=== PATIENT | male | born 1975 | race Caucasian/White ===

== ENCOUNTER 2023-04-04 08:28 | Day surgery (SDC) | payer BC ==
[2023-04-03 15:30] LABS: BASOPHILS % (AUTO) 0.4 % (0-1); EOSINOPHILS # (AUTO) 0.4 X10'3 (0-0.9); EOSINOPHILS % (AUTO) 4.3 % (0-6); LYMPHOCYTES # (AUTO) 2.1 X10'3 (1.1-4.8); LYMPHOCYTES % (AUTO) 25.5 % (21-51); MEAN CORPUSCULAR HEMOGLOBIN 32.4 PG (27.0-31.0); MEAN CORPUSCULAR HGB CONC 33.9 g/dL (33.0-36.5); MEAN CORPUSCULAR VOLUME 95.4 FL (78-98); MEAN PLATELET VOLUME 8.6 FL (7.4-10.4); MONOCYTES # (AUTO) 0.9 X10'3 (0-0.9); MONOCYTES % (AUTO) 10.2 % (2-12); NEUTROPHILS % (AUTO) 59.6 % (42-75); PRE OP HEMATOCRIT 43.1 % (42.0-52.0); PRE OP HEMOGLOBIN 14.6 g/dL (14.0-17.9); PRE OP PLATELET COUNT 223 X10'3 (140-440); RED BLOOD COUNT 4.52 X10'6 (4.70-6.10); RED CELL DISTRIBUTION WIDTH 12.9 % (11.5-14.5)
[2023-04-03 15:49] LABS: ALBUMIN 3.6 G/DL (3.4-5.0); ALBUMIN/GLOBULIN RATIO 1.2 (1.1-1.5); ALKALINE PHOSPHATASE 73 IU/L (46-116); BLOOD UREA NITROGEN 17 MG/DL (7-18); CALCIUM 9.2 MG/DL (8.5-10.1); CHLORIDE 105 MMOL/L (99-107); PRE OP ALT 49 U/L (30-65); PRE OP ANION GAP 7 (8-16); PRE OP AST 22 U/L (10-37); PRE OP BILIRUB, TOTAL 0.4 MG/DL (0.0-1.0); PRE OP GLUCOSE 105 MG/DL (70-104); PRE OP POTASSIUM 3.8 MMOL/L (3.4-5.1); PRE OP SODIUM 141 MMOL/L (135-145); TOTAL CARBON DIOXIDE 29.2 MMOL/L (24-32); TOTAL PROTEIN 6.5 G/DL (6.4-8.2); eGFR 79 ML/MIN
[2023-04-04] VITALS (9 sets, daily range): BP systolic 110–136; BP diastolic 77–86; PULSE 57–67; RESP 12–16; TEMP 98.2; O2SAT 94–98
[~2023-04-04] VITALS: Ht 180.3 cm; Wt 76.2 kg
[~2023-04-04 08:28] MED LIST: ALBU6.7H14 INH; ATOR40TA71 PO; BUPIVAcaine/PF 2.5 mg/ml (0.25%) 30ml vial ONE; LEVO75TA PO; cefazolin 2gm/D5W 100mL 100 ML IV ONE; famotidine 20mg tablet PO ONE; ringers solution, lacted 500 ML IV SCH
[2023-04-04] MEDS ORDERED: LIDOcaine 0.5% (5mg/ml) 50ml vial ONE (10:26)
[2023-04-04] MEDS ORDERED: ringers solution, lacted 1,000 ML IV SCH (10:35)
[2023-04-04] MEDS ORDERED: morphine 4 MG/ML inj SYRINge IV PRN (10:35)
[2023-04-04] MEDS ORDERED: morphine 2 MG/ML inj. syringe IV PRN (10:35)
[2023-04-04] MEDS ORDERED: ondansetron/PF 4mg/2ml inj IV PRN (10:35)
[2023-04-04] MEDS ORDERED: meperidine/PF 25mg/ml syringe IV PRN ×3 (10:35)
[2023-04-04] MEDS ORDERED: proCHLORperazine 10 MG/2 ml inj IV PRN (10:35)
[2023-04-04] MEDS ORDERED: fentaNYL/PF 50MCG/1 ML 2ML syringe ONE (11:20)
[2023-04-04] MEDS ORDERED: midazolam 1 mg/ML 2ml injection ONE (11:20)
[2023-04-04] MEDS ORDERED: propofol inj 20 ML IV ONE (11:59)
--- NOTE | 2023-04-04 12:14 | NUR ---
Received from OR via cally, accompanied by Anesthesiologist Dr. Campbell and report given by Anesthesiolgist. Pt presents with 20g RAC, Dressing on left hand/arm CDI, VSS, room air, 0/10 pain. Addendum: 04/04/23 at 1227 by Mary Anne Gant RN, RN Amended: Links added.
--- NOTE | 2023-04-04 13:04 | NUR ---
ABLE TO SAFELY AMBULATE AND TRANSFER SELF. IV TAKEN OUT WITHOUT ANY COMPLICATIONS. ALL DISCHARGE INSTRUCTIONS COVERED WITH PATIENT AND ALL QUESTIONS ANSWERED. PATIENT TAKEN OUT VIA WHEELCHAIR TO PERSONAL VEHICLE WHERE FAMILY/FRIEND DROVE PATIENT HOME. Addendum: 04/04/23 at 1311 by Mary Anne Gant RN, RN Amended: Links added.
== END 2023-04-04 13:04 | disposition home or self-care (01) ==
LOC: PAS 08:28
PROVIDERS: ATTEND Orthopaedic Surgery Hand Surgery
DX: S62.613A Displaced fracture of proximal phalanx of left middle finger, initial encounter for closed fracture (principal); E78.00 Pure hypercholesterolemia, unspecified; E03.9 Hypothyroidism, unspecified; Z79.899 Other long term (current) drug therapy; Z72.89 Other problems related to lifestyle; Z91.040 Latex allergy status; Z91.048 Other nonmedicinal substance allergy status; W18.39XA Other fall on same level, initial encounter; Y93.66 Activity, soccer; Y92.89 Other specified places as the place of occurrence of the external cause; Y99.8 Other external cause status
CPT/HCPCS: 26746; 36415; 80053; 85025; A6222; C1713; J0690; J2250; J2704; J3010; J3490; J7030; J7120; Z7506; Z7512; A4215; A4618; A6449; A7000